=== PATIENT | female | born 1945 | race Caucasian/White ===

== ENCOUNTER 2023-07-18 16:24 | Outpatient (REF) | payer MEDICARE, SELFPAY ==
[2023-07-18 21:07] LABS: HCT 42.5 % (36.0-46.0); MCH 30.6 pg (27.0-33.0); MCHC 32.9 % (32.0-36.0); MCV 93 fL (80-95); MPV 11.6 fL (8.0-11.0); Platelet Count 251 10^3/uL (130-400); RBC 4.57 10^6/uL (3.93-5.22); RDW 12.4 % (11.7-14.6); RDW-SD 42.6 fL; WBC 7.29 10^3/uL (4.4-10.8)
[2023-07-18 21:18] LABS: ALT 24 U/L (14-59); AST 17 U/L (15-37); Albumin 3.5 g/dL (3.4-5.0); Alkaline Phosphatase 76 U/L (46-116); Anion Gap 2.8 mmol/L (3-11); BUN 34 mg/dL (7-18); Bilirubin, Total 0.3 mg/dL (0.2-1.0); CO2 29.2 mmol/L (21.0-32.0); CREATININE 1.3 mg/dL (0.55-1.02); Calcium 9.2 mg/dL (8.5-10.1); Calculated LDL 136 mg/dL (<100); Chloride 107 mmol/L (98-107); Cholesterol 237 mg/dL (<200); Estimated GFR 41.57 (mL/min/1.73m2); Glucose 114 mg/dL (74-106); HDL Cholesterol 51 mg/dL (40-60); Potassium 4.3 mmol/L (3.5-5.1); Sodium 139 mmol/L (136-145); Total Protein 6.9 g/dL (6.4-8.2); Triglyceride 254 mg/dL (<150)
[2023-07-18 21:28] LABS: Hemoglobin A1C 5.7 % (<5.7)
[2023-07-18 22:09] LABS: Vitamin D 25 Total 58.6 ng/mL (30-100)
== END 2023-07-18 16:25 | disposition home or self-care (01) ==
LOC: NCHCN 16:24
PROVIDERS: Visit Provider Family Medicine
DX: Z00.00 Encounter for general adult medical examination without abnormal findings (principal)
CPT/HCPCS: 80053; 80061; 82306; 85027; 83036

== ENCOUNTER → 2023-11-10 14:14 | Outpatient (BNVA) | payer MEDICARE, SELFPAY | PROVIDERS: Visit Provider Physical Therapy Assistant | DX: Z12.11 Encounter for screening for malignant neoplasm of colon (principal); Z80.0 Family history of malignant neoplasm of digestive organs ==

== ENCOUNTER 2023-11-18 11:16 | Day surgery (SDC) | payer MEDICARE, SELFPAY ==
--- NOTE | 2023-11-17 20:32 | W.PM.DSUDISC ---
Date of service: 11/18/23 Time of Service: 15:06 Discharge Plan Disposition Patient Disposition: Home Condition: Good Discharge Details Reason For Visit: screening colonoscopy Attending Provider: Terrell Rothman Primary Care Provider: Chandni Moncada Home Meds and New Rx's Prescriptions: Continued magnesium 200 mg tablet 400 mg PO DAILY nbxosovhq-Kv-jqolg-mushroomcmb [phone] by-dwd-yw-mg tablet 1 tab PO DAILY Probiotic 15 billion cell capsule, sprinkle 1 cap PO DAILY Rx Instructions: do not crush/chew/cut; swallow whole OR may open and sprinkle in cold drink/food acetaminophen 325 mg capsule 325 mg PO Q6H PRN ibuprofen [Advil] 200 mg tablet 200 mg PO Q6H Discontinued bisacodyl [Dulcolax (bisacodyl)] 5 mg tablet,delayed release (DR/EC) 5 mg PO ONCE Qty: 4 0RF Rx Instructions: Take per colonoscopy instructions provided by ordering providers office polyethylene glycol 3350 17 gram/dose powder 17 g PO ONCE Qty: 238 0RF Rx Instructions: Take per colonoscopy instructions provided by ordering providers office Discharge Instructions Instructions: Colon polyps, Diverticulosis Additional Instructions: Anita, I am so happy to see you today, and I hope you are comfortable during the procedure. As you probably remember, everything went very smoothly. We did have 2 polyps today, that I removed. These will both be sent off for testing, and once I know the nature of them, we will be in touch with recommendations for any future colonoscopies. Incidentally, you also have a fair amount of diverticulosis. These are weak spots in the muscular part of the colon wall that typically accumulate as we age. They can get infected or inflamed. When that happens, patients typically have quite a bit of pain that usually on the left side of their abdomen, or down across the middle portion. During these episodes of inflammation, we caught diverticulitis, and patients are usually quite sick and often times treated with antibiotics. I hope you are is never give you any trouble. I have attached a little bit of information here about colorectal polyps, as well as diverticulosis. As I mentioned, once we have the results of the polyp report, the office will be in touch. If you have any questions in the meantime, please do not hesitate to ask. 1. If tolerated, consume a soft, low fiber diet for 1-2 days. 2[address] Do not drive, drink alcohol, operate machinery, make critical decisions, or do activities that require coordination or balance for 24 hours. 3. Because air was put into your colon during the procedure, expelling air from your rectum (passing gas or farting) is normal. 4. You may not have a bowel movement for 1-3 days because of the colonoscopy prep. This is normal. 5. Go directly to the emergency room if you notice any of the following: Develop chills (warm to touch), or if you have a thermometer and your temperature is above 101 Difficulty breathing or difficultly swallowing Persistent vomiting Severe abdominal pain, other than gas cramps Severe chest pain Black, tarry stools Any bleeding ? exceeding one tablespoon 6. Call your physician if the site where your intravenous was started becomes red, swollen, painful, and warm to touch. 7. Your physician has reviewed your pre-procedure medications. Please continue to take those medications as previously ordered. You will be given specific information/education regarding any changes to your medications before leaving. Stand Alone Forms: Anesthesia Discharge InstBartolo, Scout Rosas (DSU) Activity:: Activity as Tolerated Diet:: As Tolerated Discharge Orders Discharge Orders: Discharge Order (Routine); Ordered 11/17/23 Ordered By: Terrell Rothman DS: Diagnosis Discharge Diagnosis (1) Encounter for screening colonoscopy: Status: Acute Asessment and Plan: Follow-up on polypectomy results
--- NOTE | 2023-11-17 20:33 | W.COLOREPORT ---
Date of service: 11/18/23 Time of Service: 15:08 Colonoscopy Report Date of procedure: 11/18/23 Pre-op diagnosis general: screening colonoscopy Post-op diagnosis procedure note: other (Diverticulosis, colorectal polyps) Procedure: colonoscopy with polypectomy Surgeon: Terrell Rothman Anesthesia Type: General:No Airway Estimated blood loss (mL): 5 Pathology: other (0.25 cm polyp at 20 cm, 0.5 cm polyp in the rectum) Complications: None Disposition: same day Indications: Anita is an 78 year old woman with a family history of colon cancer who needs her next screening colonoscopy Prep: Miralax/Dulcolax Procedure Start Time: 14:39 Procedure End Time: 15:00 Retraction Time: 10 Findings: Sigmoid diverticulosis, 0.25 cm polyp at 20 cm, 0.5 cm polyp in the rectum Procedure Description: After the induction of anesthesia, and with the patient in left lateral decubitus position, I began by performing an external anorectal exam.? Perineum and skin were normal, as was the anal verge.? There was no evidence of external hemorrhoids.? Next, I performed a digital rectal exam.? I did not appreciate any abnormal findings.? Next, I advanced a colonoscope into the rectal vault.? I performed retroflexion.? There are internal hemorrhoids.? Using insufflation, I then advanced the colonoscope beyond the rectal folds and into the sigmoid colon before advancing towards the cecum.? There is sigmoid diverticulosis. the scope was noted to be in the cecum by identification of the ileocecal valve and appendiceal orifice.? I then began withdrawing the colonoscope using repeated irrigation as necessary for full evaluation of the colonic mucosa. Around 20 cm from the anal verge was a 0.25 cm flat polyp. This was removed with cold forceps without any significant bleeding. ?Once the scope was withdrawn to the level of the rectum, great care was taken to examine portions of the rectal folds.? The upper portion of the rectal vault was another polyp. This was about 0.5 cm, more pedunculated. This was removed with cold forceps as well. Finally, the scope was withdrawn and the patient was brought to the same-day surgery recovery unit as the anesthetic wore off. ?The findings and instructions were shared with the patient prior to discharge. [place] Bowel Prep [place] Bowel Prep Right Colon: 3 Left Colon: 3 Transverse Colon: 3 Total Score: 9
--- NOTE | 2023-11-18 06:21 | W.ANESPRE ---
General Info Date of Service Date Performed: 11/18/23 Height: 5 ft 7 in Weight: 71.668 kg Body Mass Index (BMI): 24.7 Surgical Procedure: Operation Date: 11/18/23 12:50 Proposed Procedure Side Surgeon p Colonoscopy Terrell Rothman MD Meds Allergies and Home Medications Allergies Allergy/AdvReac Type Severity Reaction Status Date / Time Penicillins Allergy Unknown Hives Verified 11/18/23 11:50 Home Medication ?Medication ?Instructions ?Recorded ocakbezkx-Zk-frfzp-mushroomcmb 300 1 tab PO DAILY 11/16/23 mg-100 mcg-200 mg-250 mg tablet lactobacillus combo no.11 15 1 cap PO DAILY 11/16/23 billion cell sprinkle capsule (Probiotic) magnesium 200 mg tablet 400 mg PO DAILY 11/16/23 acetaminophen 325 mg capsule 325 mg PO Q6H PRN 11/18/23 ibuprofen 200 mg tablet (Advil) 200 mg PO Q6H 11/18/23 Current Visit Medications: Current Medications Generic Name Dose Route Start Last Admin Trade Name Omiq PRN Reason Stop Dose Admin Hyoscyamine Sulfate 0.125 mg 11/17/23 20:35 Hyoscyamine 0.125 Mg Sl/Oral/Chew SL 12/17/23 20:34 DIRECTED PRN Ringer's Solution 1,000 mls @ 80 mls/hr 11/18/23 06:00 IV 12/17/23 23:59 INFUSION SUYAPA IV Miscellaneous Supplies 1 each 11/18/23 06:00 Iv Access IV 12/17/23 23:59 DIRECTED SUYAPA Ondansetron HCl 4 mg 11/17/23 20:35 Ondansetron 4 Mg/2 Ml Vial IVP 12/17/23 20:34 Q4H PRN PRN Nausea / Vomiting Sodium Chloride 0 ml 11/18/23 06:00 Normal Saline Flush 10 Ml Syr IV 12/17/23 23:59 PRN PRN Sodium Chloride 0 ml 11/18/23 06:00 Normal Saline 10 Ml Vial IJ 12/17/23 23:59 DIRECTED PRN Sterile Water 0 ml 11/18/23 06:00 Water,Injection,Sterile 10 Ml Vial IJ 12/17/23 23:59 DIRECTED PRN PFSH Active Problems Active Problems: Problem Status Onset Code Encounter for screening colonoscopy Acute Z12.11 Medical History Medical History (Updated 11/18/23 @ 12:00 by Anastasiya Belcher RN) Hyperlipidemia Diverticulosis of colon Kidney disease GERD (gastroesophageal reflux disease) 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 History of colonoscopy Tobacco Smoking/Tobacco Use Status: Current, status unknown Tobacco Type: cigarettes Alcohol Alcohol Intake: current Alcohol intake frequency: a few times a month Substance Use Substance use: Rarely Substance use type: marijuana Vital Signs and Lab Results Vital Signs Most Recent Vital Signs in EMR: Temp Pulse Resp BP Pulse Ox 36.7 C 66 12 130/75 95 11/18/23 11:53 11/18/23 11:53 11/18/23 11:53 11/18/23 11:53 11/18/23 11:53 Lab Results Blood Type / Crossmatch: No Data to Display Complete Blood Count: No Data to Display Complete Metabolic Panel: No Data to Display Liver Function Panel: No Data to Display Coagulation Panel: No Data to Display Cardiac Panel: No Data to Display Arterial Blood Gas: No Data to Display Venous Blood Gas: No Data to Display Pancreas Panel: No Data to Display Thyroid Panel: No Data to Display Infectious Disease: No Data to Display Blood Cultures: No Data to Display Toxicology Panel: No Data to Display Anesthesia Assessment and Plan Anesthesia History Personal History: No History of Anesthesia Complications Family History: No Family History of Anesthesia Complications Exercise Tolerance Exercise Tolerance: Metabolic Equivalents>4 Cardiac & Pulmonary Exam Cardiac Exam: Normal S1/S2 Heart Sounds Pulmonary Exam: Clear Bilateral Breath Sounds Implantable Cardiac Device Does patient have a Pacemaker or an ICD?: No Airway Exam Known Difficult Airway: No Mallampati Class: 3 Mouth Opening: Normal (> 3cm) Thyromental Distance: Greater than 3 cm Neck Range of Motion: Full ROM Neck Circumference: Normal Teeth Condition: Normal Dentition ASA Classification ASA Score: ASA 2 Emergency Case?: No NPO Status NPO Status: NPO Clears >2 hours, Solids >8 hours Anesthesia Plan Resuscitation Status: Full Code Anesthesia Technique: General Anesthesia Airway Planned: Natural Airway Monitors Used: Standard Monitors Preoperative Comments:: 78 yo female for colo. Sig PMHx: GERD, goiter, smoker, occ EtOH/cannabis.
[2023-11-18 11:53] VITALS: BP 130/75; PULSE 66; RESP 12; TEMP 36.7; O2SAT 95
[2023-11-18] MEDS: Lactated Ringers 1,000 ML 80 ML IV (12:01)
[2023-11-18 12:36] VITALS: BMI 24.7
--- NOTE | 2023-11-18 14:58 | BOWEL_PTH ---
PATIENT: Anita Hidalgo LOC: [facility] U#:[id number] AGE/SX: 78/F ROOM: RE11/18/[address]: Terrell Rothman MD : [id number] BED: DIS: 11/18/2023 SPEC #: [id number] RECD: 11/18/23 16:42 STATUS: UVALDO RE #: [id number] ALEXANDRE: 11/18/23 14:[address]: Terrell Rothman DEPT: Surgical Specimen RECD BY: Mary Roberts ENTERED: 11/18/23 16:43 SP TYPE: Bowel OTHR DR: Chandni Moncada Tissues: 1 - BIOPSY BOWEL 2 - BIOPSY BOWEL Procedures: GROSS AND MICRO LEVEL 4 Comments: [id number]
[2023-11-18 15:02] VITALS: BP 138/79; PULSE 65; RESP 16; TEMP 35.9; O2SAT 96
[2023-11-18 15:38] VITALS: BP 147/71; PULSE 63; RESP 16; TEMP 36; O2SAT 96
--- NOTE | 2023-11-18 16:11 | W.ANESPOSTOP ---
Postoperative Evaluation Date, Time and Location Date Performed: 11/18/23 Time Performed: 15:40 Patient Location: Day Surgery Unit Vital Signs Most Recent Imported Vital Signs: Most Recent Vital Signs Temp Pulse Resp BP Pulse Ox 36 C L 63 16 147/71 H 96 11/18/23 15:38 11/18/23 15:38 11/18/23 15:38 11/18/23 15:38 11/18/23 15:38 Pain Score Most Recent Pain Score: Most Recent Pain Score Pain Level 0 11/18/23 15:38 Assessment Mental Status: Awake (Alert & Oriented to Patient Baseline) Airway and Respiratory Function: Patent airway with normal (patient baseline) respiratory exam Cardiovascular Function: Hemodynamically Stable Hydration Status: Adequately Hydrated Nausea & Vomiting: No Nausea or Vomiting Pain: Pt. Denies Any Pain Peripheral Nerve Block: Patient did not receive a nerve block
== END 2023-11-18 15:44 | disposition home or self-care (01) ==
LOC: SUR 11:17
PROVIDERS: PCP Family Medicine; Visit Provider Surgery
PROC: 0DJD8ZZ Inspection of Lower Intestinal Tract, Via Natural or Artificial Opening Endoscopic (ICD-10-PCS; CPT 45378; principal; 2023-11-18 12:45)
DX: Z12.11 Encounter for screening for malignant neoplasm of colon (principal); K63.5 Polyp of colon; D37.5 Neoplasm of uncertain behavior of rectum; K57.30 Diverticulosis of large intestine without perforation or abscess without bleeding; Z80.0 Family history of malignant neoplasm of digestive organs
CPT/HCPCS: 45380; 88305; J2704

== ENCOUNTER 2024-01-18 15:22 | Outpatient (REF) | payer MEDICARE, SELFPAY ==
--- OUTSIDE RECORDS SUMMARY | 2024-01-18 15:24 | XMS_ITS | Continuity of Care Document ---
Author Organization [facility] Address [address] [place] [address] Assessment Encounter Date Assessment Date Assessment LastModified by Organization Details LastModified Time 01/18/2024 01/18/2024 The total time devoted to today's encounter, including both the cjoh-qc-wzps time with the patient and/or family/caregi yari and eow-rwns-aj-f florencio time I personally spent is 33 minutes. lbisson Not available 01/18/2024 14:53:59 Plan of Treatment Reminders Order Date Submit Date Provider Last Modified By Organization Details Last Modified Time Details Appointments Office Visit 20 2023 02:10P M Not available Not available Not available Office Visit 20 2024 02:10P M Not available Not available Not available Lab HbA1c (hemoglo bin A1c), blood - 1Y, 1P 2023 024 [facility] [address] [place] [address] [place], [address], 01/18/2024 15:10:45 CMP, serum or plasma - 1Y, 1P 2023 024 [facility] [address] [place] [address] [place], [address], 01/18/2024 15:10:44 CBC w/ auto diff - 1Y, 1P 2023 024 [facility] [address] [place] [address] [place], [address], 01/18/2024 15:10:43 lipid panel, serum - 1Y, 1P 2023 024 [facility] (Registration ), [address] [place] [address] , [place], [address], 01/18/2024 15:10:45 Referral None recorded . Procedures None recorded . Surgeries None recorded . Imaging None recorded . Medication Orders None recorded . Patient TargetsNo targets recorded. Patient InstructionsNo instructions recorded. Reason for Referral None Reported. Problems Name Problem SNOMED Code Status Onset Date Resolution Date Notes Provider Name and Address Organization Details Recorded Time Non-toxi c uninodul ar goiter 785362554 Active 2014 [facility] 4 19:03:08 Impingem ent syndrome of shoulder region 872266001 Active 2014 [facility] 4 19:02:58 Radha adames Completed 201708/24/2017 08/11/19 18 - Comments only - Kaitlyn michele [employer] - - She gets her preventi ve care in [facility], where she spends 5 months of the year. Reports she is up-to-da te on preventa tive care. She has a copy of her immuniza tions and recent labs, which I will have preclude d into her chart. Problem Code: Z71.89; Problem Code Type: ICD-10; Not Available [facility] 3 06:00:33 Disorder of skin and/or subcutan eous tissue 38855590 Completed 202011/04/2020 Problem Code: L98.8; Problem Code Type: ICD-10; Not Available [facility] 3 06:00:33 Infectio n of skin and/or subcutan eous tissue 17772024 Completed 201710/21/2020 Problem Code: L08.89; Problem Code Type: ICD-10; Not Available [facility] 3 06:00:33 Gastroes ophageal reflux disease 253507786 Active 2022 RAGINI MD [address], [address] 4 15:57:37 Kidney disease 79716929 Active [address], [address] 4 15:57:37 Divertic ulosis of colon 034031212 Active [address], [address] 4 15:57:37 Thyroid nodule 997536880 Active [address], [address] 4 15:57:37 Prediabe car 551841315 Active [address], [address] 4 14:01:09 Hyperlip idemia 78007230 Active [address], [address] 4 14:01:09 Problem Notes None recorded. Procedures Surgical History Date Name Laterality Status Provider Name and Address Organization Details Recorded Time 4 Date of Last Colonoscopy completed SHERRIE BAUMANN CMA [facility] 01/18/2024 13:53:56 Imaging Results None recorded. Procedure Notes None recorded. Medical Equipment None Reported. Allergies Allergen ID Allergen Name Allergen Category Reaction Reaction Severity Criticality Documentation Date Start Date Code Code System Note Provider Name and Address Organization Details Recorded Time 62908 Medicinal product containin g penicilli n and acting as antibacte rial agent (product) medicatio n Not available Not available Not available 02/25/20232014 42081 05 SNOMED Not Available [facility] 3 16:30:47 Medications Name Sig Start Date Stop Date Status Note LastModified by Organization Details LastModified Time Diflucan 150 mg tablet Take 1 tab by mouth now 018 2017 completed Not Available Not Available Not Available Bactrim DS 800 mg-160 mg tablet Take 1 tab by mouth twice daily 018 2019 completed Not Available Not Available Not Available Vitals Date Recorded Body height Body mass index (BMI) Body weight Body temperature Heart rate Oxygen saturation Oxygen saturation in Arterial blood by Pulse oximetry Respiratory rate Systolic blood pressure Diastolic blood pressure Provider Name and Address Organization Details Last Updated DateTime 170.18 cm 25.5 kg/m2 46601.8 4 g 96.8 [degF] 80 /min 95 % 95 % 20 /min 118 mm[Hg] 78 mm[Hg] SHERRIE BAUMANN CMA [facility] 13:48:59 Social History Question Answer Notes LastModified by Organizat ion Details LastModified Time Tobacco Smoking Status Former Smoker CHAPARRITA FLEMING RN [email or web address], [facility] 07/18/2023 14:46:57 When Did You Quit Smoking? 16+yearssinc elastcigaret te [email or web address] Information not available 07/18/2023 What Was The Date Of Your Most Recent Tobacco Screening? 01/18/2024 [email or web address] Information not available 01/18/2024 Has Tobacco Cessation Counseling Been Provided? No [email or web address] Information not available 07/18/2023 Do You Or Have You Ever Used Any Other Forms Of Tobacco Or Nicotine? No [email or web address] Information not available 07/18/2023 Sex: Female Functional Status None recorded. Mental Status None recorded. Family History Relationship Description Onset Age of this Age Resolved Age Notes LastModified by Organization Details LastModified Time Mother Diabetes mellitus 95 lbisson Not available 2023 15:52:00 Mother Dementia 95 lbisson Not available 07/18/2023 15:52:23 Father Malignant tumor of colon 70 99 lbisson Not available 2023 15:53:27 Medical History No medical history recorded. Gynecological History Statement/Question Response Date of Last Colonoscopy 11/18/2023 Obstetrics History GPAL:G 0 P 0 0 0 0 Immunizations Vaccine Type Date Status Provider Name and Address Organization Details Recorded Time COVID-19, mRNA, LNP-S, PF, jose d-sucrose, 30 mcg/0.3 mL 07/18/20[address] completed MD [address], [place], [address], [facility] 07/20/2023 06:59:12 Pneumococcal conjugate PCV20, polysaccharide ICU566 conjugate, adjuvant, PF 07/18/2023 completed MD [address], [place], [address], [facility] 07/20/2023 06:59:12 DTaP, unspecified formulation 06/10/2005 completed Not Available [facility] 02/25/2023 05:10:40 Tdap 04/07/2016 completed Not Available [facility] 05:10:40 zoster live 04/17/2008 completed Not Available [facility] 02/25/2023 05:10:40 Pneumococcal conjugate PCV 13 04/23/2015 completed Not Available [facility] 02/25/2023 05:10:41 Influenza, high-dose, trivalent, PF 02/02/2018 completed Not Available [facility] 02/25/2023 05:10:41 Influenza, high-dose, quadrivalent, PF 01/17/2020 completed Not Available [facility] 02/25/2023 05:10:41 Influenza, high-dose, quadrivalent, PF 01/16/2021 completed Not Available [facility] 02/25/2023 05:10:41 Influenza, high-dose, quadrivalent, PF 02/10/2022 completed Not Available [facility] 02/25/2023 05:10:42 COVID-19, mRNA, LNP-S, PF, 100 mcg/0.5mL dose or 50 mcg/0.25mL dose 05/23/2020 completed Not Available [facility] 02/25/2023 05:10:42 COVID-19, mRNA, LNP-S, PF, 100 mcg/0.5mL dose or 50 mcg/0.25mL dose 06/20/2020 completed Not Available [facility] 02/25/2023 05:10:42 COVID-19, mRNA, LNP-S, PF, 100 mcg/0.5mL dose or 50 mcg/0.25mL dose 02/13/2021 completed Not Available [facility] 02/25/2023 05:10:42 pneumococcal polysaccharide PPV23 06/10/2005 completed Not Available [facility] 2022 05:10:42 pneumococcal polysaccharide PPV23 07/24/2010 completed Not Available [facility] 2022 05:10:42 Hep A, unspecified formulation 05/08/2013 completed Not Available [facility] 02/25/2023 05:10:43 Hep A, unspecified formulation 10/05/2012 completed Not Available [facility] 02/25/2023 05:10:43 influenza, unspecified formulation 04/02/2014 completed Not Available [facility] 02/25/2023 05:10:43 typhoid, unspecified formulation 09/09/2005 completed Not Available [facility] 02/25/2023 05:10:43 SARS-COV-2 (COVID-19) vaccine, UNSPECIFIED 07/21/2021 completed SHERRIE BAUMANN REGULATORY AFFAIRS COORDINATOR null, [facility] 03/21/2023 10:37:54 SARS-COV-2 (COVID-19) vaccine, UNSPECIFIED 02/13/2021 completed SHERRIE BAUMANN CMA null, [facility]. 03/21/2023 10:38:15 influenza nasal, unspecified formulation 02/17/2015 completed SHERRIE BAUMANN REGULATORY AFFAIRS COORDINATOR null, [facility]. 03/21/2023 10:39:33 zoster recombinant 07/14/2018 completed SHERRIE DAVIS REGULATORY AFFAIRS COORDINATOR null, [facility]. 03/21/2023 10:42:03 zoster recombinant 03/23/2018 completed SHERRIE DAVIS REGULATORY AFFAIRS COORDINATOR null, [facility]. 03/21/2023 10:42:20 SARS-COV-2 (COVID-19) vaccine, UNSPECIFIED 02/22/2023 completed Not Available [facility] 04/29/2023 05:31:12 Respiratory syncytial virus (RSV), unspecified 02/22/2023 completed Not Available [facility] 04/29/19 05:31:12 influenza, unspecified formulation 02/22/2023 completed Not Available [facility] 04/29/2023 05:31:13 COVID-19, mRNA, LNP-S, PF, jose d-sucrose, 30 mcg/0.3 mL 12/22/2023 completed IAN DARDEN, [facility] 01/18/2024 13:50:58 influenza, unspecified formulation 01/17/2024 [facility] 13:51:24 Past Encounters Encounter ID Performer Location Encounter Start Date Encounter Closed Date Diagnosis/Indication Diagnosis SNOMED-CT Code Diagnosis ICD10 Code [id number] SHERRIE BAUMANN CMA [address] [address] 01/18/2024 13:41:53 01/18/2024 14:36:56 Hyperlipidemia 32397811 E78.5 Kidney disease 28752446 N08 Prediabetes 903631578 R7 3.03 Health Concerns Section Related Observation LastModified by Organization Detai ls LastModified Time None Recorded Concern Status LastModified by Organization Details LastModified Time None Recorded Payers Encounter Date Sequence Insurance Name Policy Number Policy Pantoja Covered Member ID Pantoja Member ID Guarantor Name 01/18/2024 1 [facility] (MEDICARE REPLACEMENT/A DVANTAGE - PPO) [id number] Anita Hidalgo [id number] Anita Hidalgo Notes Date Note Type Note Provider Name and Address Organization Details Recorded Time 01/18/2024 text/html HPI Notes: Anita is an 78-year-old female comes in today for follow-up on her kidney disease. She is due to get her renal functions checked. She was really because her blood count checked as well. She does have a history of gastroesophageal reflux disease if she is taking Pepcid that is been very helpful she is prediabetic she is due for her A1c as well. She recently had a colonoscopy that was positive for 2 polyps 1 was precancerous she will be scheduled in the next 3 years for repeat. She has had no change in her bowels no change in her urination no chest pain shortness of breath cough fever or chills SHERRIE BAUMANN CMA null, [facility] 01/18/2024 15:05:17 OBGyn Episode No OBEpisode recorded.
[2024-01-18 21:12] LABS: Abs Immature Grans 0.02 10^3/uL (0.0-0.06); Absolute Basophil Count 0.04 10^3/uL (0.0-0.2); Absolute Eosinophil Count 0.19 10^3/uL (0.0-0.7); Absolute Lymphocyte Count 1.81 10^3/uL (1.2-3.4); Absolute Monocyte Count 0.57 10^3/uL (0.1-0.8); Absolute Neutrophil Count 3.75 10^3/uL (1.2-6.7); Basophils % 0.6 %; HCT 41.8 % (36.0-46.0); HGB 13.8 g/dL (11.2-15.7); Immature Grans % 0.3 %; Lymphocytes % 28.4 %; MCH 31.2 pg (27.0-33.0); MCV 95 fL (80-95); MPV 11.7 fL (8.0-11.0); Monocytes % 8.9 %; Neutrophils % 58.8 %; Platelet Count 260 10^3/uL (130-400); RBC 4.42 10^6/uL (3.93-5.22); RDW 12.1 % (11.7-14.6); RDW-SD 42.5 fL; WBC 6.38 10^3/uL (4.4-10.8)
[2024-01-18 21:29] LABS: ALT 23 U/L (14-59); AST 17 U/L (15-37); Albumin 3.4 g/dL (3.4-5.0); Alkaline Phosphatase 80 U/L (46-116); Anion Gap 4.6 mmol/L (3-11); BUN 26 mg/dL (7-18); Bilirubin, Total 0.32 mg/dL (0.2-1.0); CO2 29.4 mmol/L (21.0-32.0); CREATININE 1.2 mg/dL (0.55-1.02); Calcium 9.4 mg/dL (8.5-10.1); Calculated LDL 125 mg/dL (<100); Chloride 104 mmol/L (98-107); Cholesterol 219 mg/dL (<200); Estimated GFR 45.76 (mL/min/1.73m2); Glucose 97 mg/dL (74-106); HDL Cholesterol 53 mg/dL (40-60); Potassium 4.9 mmol/L (3.5-5.1); Sodium 138 mmol/L (136-145); Total Protein 6.8 g/dL (6.4-8.2); Triglyceride 205 mg/dL (<150)
[2024-01-18 21:39] LABS: Hemoglobin A1C 5.8 % (<5.7)
== END 2024-01-18 15:23 | disposition home or self-care (01) ==
LOC: NCHCN 15:22
PROVIDERS: PCP Family Medicine; Visit Provider Family Medicine
DX: E78.5 Hyperlipidemia, unspecified (principal); R73.03 Prediabetes; N08 Glomerular disorders in diseases classified elsewhere
CPT/HCPCS: 80053; 80061; 83036; 85025

== ENCOUNTER 2025-01-30 10:20 | Outpatient (REF) | payer MEDICARE, SELFPAY ==
[2025-01-30 15:51] LABS: ALT 26 U/L (14-59); AST 13 U/L (15-37); Albumin 3.3 g/dL (3.4-5.0); Alkaline Phosphatase 68 U/L (46-116); Anion Gap 7.2 mmol/L (3-11); BUN 27 mg/dL (7-18); Bilirubin, Total 0.3 mg/dL (0.2-1.0); CO2 28.8 mmol/L (21.0-32.0); Calcium 9.3 mg/dL (8.5-10.1); Calculated LDL 129 mg/dL (<100); Chloride 104 mmol/L (98-107); Cholesterol 201 mg/dL (<200); Estimated GFR 50.48 (mL/min/1.73m2); Glucose 89 mg/dL (74-106); HDL Cholesterol 48 mg/dL (>or=50); Potassium 4.7 mmol/L (3.5-5.1); Sodium 140 mmol/L (136-145); TSH (W/Ref FT4) 1.98 uIU/mL (0.36-3.74); Total Protein 6.6 g/dL (6.4-8.2); Triglyceride 122 mg/dL (<150); Vitamin B12 1322 pg/mL (193-986)
== END 2025-01-30 10:21 | disposition home or self-care (01) ==
LOC: NCHCN 10:20
PROVIDERS: PCP Family Medicine; Visit Provider Family Medicine
DX: E04.1 Nontoxic single thyroid nodule (principal); Z00.00 Encounter for general adult medical examination without abnormal findings; E78.5 Hyperlipidemia, unspecified
CPT/HCPCS: 80053; 80061; 82607; 84443